=== PATIENT | female | born 1955 | race Native Hawaiian/Other Pacific Islander ===

== ENCOUNTER 2018-08-20 20:59 | Outpatient (CLI) | payer OTHER | END 2018-08-20 21:15 | disposition short-term general hospital (02) | LOC: AMB 20:59 | DX: R41.82 Altered mental status, unspecified (principal); I46.9 Cardiac arrest, cause unspecified; W10.8XXA Fall (on) (from) other stairs and steps, initial encounter; Y92.018 Other place in single-family (private) house as the place of occurrence of the external cause | CPT/HCPCS: A0425; A0433 ==